=== PATIENT | female | born 1980 | race Caucasian/White ===

== ENCOUNTER 2025-03-29 00:49 | Emergency (ER) | payer BC, SELFPAY ==
[2025-03-29 00:58] VITALS: BP 107/63
[2025-03-29] MEDS: ZOFRAN 4 MG IV (01:12)
[2025-03-29] MEDS: NSS 1000 IV (01:13)
[2025-03-29 01:15] VITALS: BP 107/63
[2025-03-29 01:23] LABS: % Basophils 0.2 % (0-2); % Eosinophils 0.1 % (0-6); % Immature Granulocytes 0.8 % (0-0.5); % Lymphocytes 8.2 % (20.5-51.1); % Monocytes 6.4 % (1.7-9.3); % Neutrophils 84.3 % (42.2-75.2); Absolute Immature Granulocytes 0.1 10^3/uL (0-0.05); Absolute Lymphocytes 0.9 10^3/uL (1.2-3.4); Absolute Monocytes 0.7 10^3/uL (0.1-0.6); Absolute Neutrophils 9.4 10^3/uL (1.4-6.5); Hematocrit 32.7 % (37.0-47.0); Hemoglobin 11.9 g/dL (12.0-16.0); Mean Corp Hgb Conc. 36.4 g/dL (33.0-37.0); Mean Corpuscular Hgb 30.7 pg (27.0-31.0); Mean Corpuscular Volume 84.5 fL (81.0-99.0); Mean Platelet Volume 9.6 fL (7.4-10.4); Nucleated Red Blood Cells % 0 %; Platelet Count 257 10^3/uL (130-400); Red Blood Cell Count 3.87 10^6/uL (4.20-5.40); Red Cell Dist. Width 12.9 % (11.5-14.5); White Blood Cell Count 11.1 10^3/uL (4.8-10.8)
[2025-03-29 01:28] LABS: HCG, Serum Qualitative Screen Negative
[2025-03-29 01:33] LABS: ALT (SGPT) 206 U/L (0-35); AST (SGOT) 208 U/L (14-36); Albumin 4.3 g/dl (3.5-5.0); Alkaline Phosphatase 135 U/L (38-126); Blood Urea Nitrogen 13 mg/dl (7-17); Calcium 8.7 mg/dl (8.4-10.2); Carbon Dioxide 14 mmol/L (22-30); Chloride 115 mmol/L (98-107); Estimated Creatinine Clearance 121 ml/min; Glucose 130 mg/dl (70-99); Potassium 3.9 mmol/L (3.5-5.1); Sodium 144 mmol/L (135-145); Total Protein 6.8 g/dl (6.3-8.2); eGFR > 60.00
[2025-03-29 01:46] LABS: Alcohol 160 mg/dl
[2025-03-29] MEDS: LR 1000 IV (02:52)
--- NOTE | 2025-03-29 02:55 | ED.GENMED ---
History of Present Illness
General
Chief Complaint: Fainting/Passed Out
Time Seen by Provider: 03/29/25 01:21
History of Present Illness
History of Present Illness:
44-year-old female presents to the emergency department via EMS for evaluation of frequent episodes of nausea and vomiting: Ending with a syncopal event. She apparently ate dinner at a restaurant tonight, states that the scallops tasted abnormal,
approximately 2 hours later she returned home and began vomiting. According to her she seems somewhat out of it and fatigued for at least 30 minutes prior to beginning vomiting. Syncopized after the multiple episodes of vomiting. Denies
any bloody vomitus. No diarrhea. Denies any abdominal pain at this time. She feels lightheaded and fatigued but otherwise denies complaints at this time
Review of Systems
Review of Systems
Allergies reviewed?: Yes
All Other Systems: ROS reviewed and negative except as documented in HPI and ROS
Phy Exam
Physical Exam
Physical Exam:
GEN: Well appearing, NAD, WDWN
HEENT: Oral mucosa moist, no scleral icterus
Cardiac: Regular rate
Lung: No respiratory distress, no tachypnea
Abdomen: Soft, nontender
MSK: No gross deformity or injuries
Skin: Good color, no pallor or jaundice, no rashes
Neuro: AO x3, moves all extremities freely
Psych: Calm, cooperative
Course
Orders/Labs/Results
Orders:
Orders
03/29/25 00:52
Electrocardiogram (*1) Urgent
Reason for Study: Syncope
Cardiology Consult: Unknown
Urinalysis Reflex To Culture Urgent
Date Specimen was Collected: 03/29/25
Time Specimen was Collected: 00:53
03/29/25 00:53
EKG- Treatment ONCE
Test Result ONCE
03/29/25 01:03
Ondansetron Injectable [Zofran] 4 mg .ROUTE .[facility]
03/29/25 01:08
Alcohol Urgent
Complete Blood Count/With Diff Urgent
Comprehensive Metabolic Panel Urgent
HCG, Serum Qualitative Screen Urgent
03/29/25 01:12
Ondansetron Injectable [Zofran] 4 mg IV NOW STA
03/29/25 01:13
0.9% Sodium Chloride 1000 ml [Nss] 1,000 ml IV BOLUS
03/29/25 02:12
Lactated Ringers [Lr] 1,000 ml IV BOLUS
Abnormal Lab Results
03/29/25
01:08
WBC 11.1 H 10^3/uL
(4.8-10.8)
RBC 3.87 L 10^6/uL
(4.20-5.40)
Hgb 11.9 L g/dL
(12.0-16.0)
Hct 32.7 L %
(37.0-47.0)
Abs Immat Gran (auto) 0.1 H 10^3/uL
(0-0.05)
Absolute Neuts (auto) 9.4 H 10^3/uL
(1.4-6.5)
Absolute Lymphs (auto) 0.9 L 10^3/uL
(1.2-3.4)
Absolute Monos (auto) 0.7 H 10^3/uL
(0.1-0.6)
Immature Gran % 0.8 H %
(0-0.5)
Neutrophils % 84.3 H %
(42.2-75.2)
Lymphocytes % 8.2 L %
(20.5-51.1)
Chloride 115 H mmol/L
(98-107)
Carbon Dioxide 14 L* mmol/L
(22-30)
Glucose 130 H mg/dl
(70-99)
AST 208 H U/L
(14-36)
ALT 206 H U/L
(0-35)
Alkaline Phosphatase 135 H U/L
(38-126)
03/29/25 01:08
03/29/25 01:08
Vital Signs
Initial and Last Documented VS:
Initial Vital Signs
Temp Pulse Resp BP Pulse Ox
97.7 F 110 20 107/63 96
03/29/25 00:58 03/29/25 00:58 03/29/25 00:58 03/29/25 00:58 03/29/25 00:58
Last Documented Vital Signs
Temp Pulse Resp BP Pulse Ox
97.7 F 113 20 107/63 95
03/29/25 00:58 03/29/25 01:15 03/29/25 01:15 03/29/25 01:15 03/29/25 01:18
MDM/Problems Addressed
MDM/Problems Addressed:
Suspect this was a vasovagal syncopal event mediated by profuse vomiting. Low serum bicarbonate is most likely on the basis of GI losses coupled with alcohol intoxication. Mild transaminitis likely secondary to alcohol intoxication. Her heart
rate and overall appearance dramatically improved after IV fluids that she is suitable for discharge to home
*Critical Care Note
Total Time (30-74mins, 75-104mins- exclusive of procedures): Not Applicable
ED Attending Note
-
Portions of this chart may have been created with voice recognition software.� Occasional wrong word or��sound alike� substitutions may have occurred due to the inherent limitations of voice recognition software.
Discharge Plan
Departure
Patient Disposition: Home (Routine Discharge)
Date of Disposition: 03/29/25
Time of Disposition: 03:03
Patient with high blood pressure during this ER visit?: No
Discharge Problem:
Syncope, vasovagal, Gastroenteritis
Instructions: Syncope (Fainting) (DC)
Prescriptions:
No Action
citalopram 40 mg Tablet
40 mg PO DAILY
estradiol
5 mg PO DAILY
methylprednisolone
See Taper PO DAILY
Taper: Prednisone DC Starting at 40 mg daily
40 dose Daily for 3 Days and 0 Hour
30 dose Daily for 3 Days and 0 Hour
20 dose Daily for 3 Days and 0 Hour
10 dose Daily for 3 Days and 0 Hour
Rx Instructions:
UNSURE OF MG
Referrals:
Wade Phillips MD [Family Provider]
Interventions
Interventions:
*Risk Screen - Suicide Last Done: 03/29/25 01:18
*Neglect/Abuse Screening Last Done: 03/29/25 01:18
*ED- Fall Risk Assessment Last Done: 03/29/25 01:16
*ED COVID-19 Vaccine History Last Done: 03/29/25 01:16
ED- Cardiac Assessment Last Done: 03/29/25 01:18
ED- Neurological Assessment Last Done: 03/29/25 01:18
Discharge Date and Time
Print Language: BANGLADESHI
[2025-03-29 03:13] LABS: Urine Albumin 2+ (Neg - Trace); Urine Bilirubin Negative (Negative); Urine Character Clear (Clear); Urine Color Yellow; Urine Glucose Negative (Negative); Urine Ketone 3+ (Negative); Urine Leukocyte 1+ (Negative); Urine Nitrite Negative (Negative); Urine Occult Blood 2+ (Negative); Urine Urobilinogen 2+ (Neg - 1+)
[2025-03-29 03:25] VITALS: BP 107/68
[2025-03-29 05:46] LABS: Urine Amorphous Seen; Urine Hyaline Cast >15 /LPF (0-2); Urine Mucus Many; Urine Squamous Cell >30 /LPF (Few); Urine Urothelial Cell >30 /LPF (FEW)
[2025-03-29 05:47] LABS: Urine Bacteria Many (Negative); Urine White Cell 30-40 /HPF (0-5)
== END 2025-03-29 03:51 | disposition home or self-care (01) ==
LOC: EMR 00:49
PROVIDERS: EMERGENCY PHYSICIAN Emergency Medicine; FAMILY PHYSICIAN Family Medicine
DX: R55 Syncope and collapse (principal); K52.9 Noninfective gastroenteritis and colitis, unspecified; R11.2 Nausea with vomiting, unspecified; F10.129 Alcohol abuse with intoxication, unspecified; R79.89 Other specified abnormal findings of blood chemistry
CPT/HCPCS: 99284; 96374; 96361; 80053; 81003; 81015; 82077; 84703; 85025; 87086; 93005